=== PATIENT | female | born 1960 | race Native Hawaiian/Other Pacific Islander ===

== ENCOUNTER 2016-05-27 15:27 | Observation (INO) | payer BC ==
[~2016-05-27] VITALS: Ht 165.1 cm; Wt 110.9 kg
[~2016-05-27 15:27] MED LIST: ALPR0.5T24 PO; AMITRIPTYLIN50 MG PO; DULO60CA2 PO; LISI20TA11 PO; PROAIR HFA IN; TIZA4TAB5 PO
[2016-05-27 19:51] LABS: PLATELET COUNT 208 K/uL (152-353)
[2016-05-28 04:00] VITALS: BP 160/78; TEMP 97.9
[2016-05-28 04:54] VITALS: BP 157/88; TEMP 98; Ht 165.1 cm; Wt 110.9 kg
[2016-05-28 05:12] LABS: PLATELET COUNT 216 K/uL (152-353)
[2016-05-28 05:33] LABS: POTASSIUM 2.8 mmol/L (3.6-5.2); SODIUM 137 mmol/L (136-145)
[2016-05-28 08:00] VITALS: BP 168/78; TEMP 98.7
--- NOTE | 2016-05-28 08:41 | NUR ---
05/28/16 AT 0146PT HAS BEEN INFORMED MULTIPLE TIMES THAT STAFF CAN NOT TAKE HER OUT TO SMOKE AND SHE DOES NOT NEED TO BE UP WITHOUT ASSISTANCE AFTER PRN PAIN MEDICATION. NOTE PT WENT OUT TO SMOKE AGAINST ADVISE OF STAFF.
--- NOTE | 2016-05-28 08:42 | NUR ---
05/27/16 AT 2120SPOKE WITH ABOUT PT'S CRITICAL BLOOD SUGAR OF 466. NEW ORDERS AT 2129: NOVOLOG 20 UNITS SQ X 1 DOSE NOW, RECHECK FSBS IN [address] OF ABD/PELVIS WITH ORAL AND IV CONTRAST STAT. T. O. R&V DR. JORDAN/ANNABELLE RIZZO RN.
--- NOTE | 2016-05-28 08:44 | NUR ---
05/27/16 AT 1945PT INSTRUCTED ABOUT NPO STATUS AND EXPLAINED WHY SHE IS NPO, PT AND DAUGHTER ACKNOWLEDGE UNDERSTANDING.
[2016-05-28] MEDS ORDERED: JANUVIA100 MG PO (09:36)
[2016-05-28] MEDS ORDERED: LOSA50TA PO (09:36)
[2016-05-28] MEDS ORDERED: LIPITOR40 MG PO (09:37)
[2016-05-28] MEDS ORDERED: LEVO0.0723 PO (09:37)
--- NOTE | 2016-05-28 10:25 | NUR ---
NOTIFIED DR JORDAN OF LABS. NEW ORDES GIVEN AND OK TO GIVE PO MEDS WITH SIP OF WATER AT THIS TIME.
[2016-05-28 12:00] VITALS: BP 157/88; TEMP 98.5
--- NOTE | 2016-05-28 14:40 | NUR ---
1440 PT SIGNED AMA AT THIS TIME. DR JORDAN AWARE AND ROUNDED ON PT PRIOR TO PT SIGNING THE AMA. PT STATED HER CHILDREN'S GRANDDADDY AND SHE HAD TO LEAVE. PT LEFT AMBULATORY WITHOU ANY PROBLEMS NOTED
== END 2016-05-28 14:45 | disposition left against medical advice (07) ==
LOC: MED/SURG 15:27
PROVIDERS: Internal Medicine; ADMIT Student in an Organized Health Care Education/Training Program
DX: R10.11 Right upper quadrant pain (principal); R11.2 Nausea with vomiting, unspecified; M79.7 Fibromyalgia
CPT/HCPCS: 36415; 80053; 81000; 82150; 83690; 85027; 85651; 86140; 96360; 96366; 96367; 96374; 99220; G0378; G0379; J2175; J3480; J3490; Q9963

== ENCOUNTER 2016-06-03 07:53 | Outpatient (CLI) | payer BC ==
[~2016-06-03 07:53] MED LIST changes: +JANUVIA100 MG PO; +LEVO0.0723 PO; +LIPITOR40 MG PO; +LOSA50TA PO
== END 2016-06-03 19:02 | disposition home or self-care (01) ==
LOC: NM 07:53
DX: R10.11 Right upper quadrant pain (principal)
CPT/HCPCS: A9537

== ENCOUNTER 2016-07-05 08:54 | Day surgery (SDC) | payer BC ==
[2016-07-02 08:56] LABS: PLATELET COUNT 194 K/uL (152-353)
[2016-07-02 09:05] LABS: POTASSIUM 3.1 mmol/L (3.6-5.2); SODIUM 136 mmol/L (136-145)
[~2016-07-05] VITALS: Ht 30.5 cm; Wt 0.5 kg
== END 2016-07-05 13:50 | disposition home or self-care (01) ==
LOC: OR 08:54
PROVIDERS: Student in an Organized Health Care Education/Training Program
PROC: 0FT44ZZ Resection of Gallbladder, Percutaneous Endoscopic Approach (ICD-10-PCS; principal; 2016-07-05)
DX: K81.1 Chronic cholecystitis (principal)
CPT/HCPCS: 36415; 80053; 85027; 85610; 85730; J0330; J0360; J2001; J2250; J2704; J2710; J3010; J3490

== ENCOUNTER 2017-01-24 18:35 | Outpatient (CLI) | payer BC | END 2017-01-24 19:00 | disposition home or self-care (01) | LOC: LAB 18:35 | DX: K52.89 Other specified noninfective gastroenteritis and colitis (principal) | CPT/HCPCS: 87015; 87045; 87205; 87324; 87449; 87899 ==

== ENCOUNTER → 2018-02-11 13:20 | Outpatient (CLI) | payer BC ==
[~2018-02-11 13:20] MED LIST changes: +AMITRIPTYLINE H50 MG PO; +BUTALBITAL/ACET1 CAP PO; +COZAAR100 MG PO; +DIPHENATOL2.5 MG PO; +FLUOXETINE40 MG PO; +IBU800 MG PO; +NEURONTIN800 MG PO; +RANITIDINE HYD300 MG PO; +[UNRECOGNIZED DRUG - OTHER] TD
== END | disposition home or self-care (01) ==
LOC: AMB 13:20
DX: R41.82 Altered mental status, unspecified (principal)

== ENCOUNTER 2018-02-11 13:45 | Observation (INO) | payer BC ==
[~2018-02-11] VITALS: Ht 167.6 cm; Wt 94.1 kg
[2018-02-11 13:45] VITALS: BP 166/85; TEMP 98.1
[~2018-02-11 13:45] MED LIST changes: -AMITRIPTYLINE H50 MG PO; -BUTALBITAL/ACET1 CAP PO; -COZAAR100 MG PO; -DIPHENATOL2.5 MG PO; -FLUOXETINE40 MG PO; -IBU800 MG PO; -NEURONTIN800 MG PO; -RANITIDINE HYD300 MG PO; -[UNRECOGNIZED DRUG - OTHER] TD
[2018-02-11 14:31] LABS: PLATELET COUNT 254 K/uL (152-353)
[2018-02-11 14:44] LABS: POTASSIUM 2.9 mmol/L (3.6-5.2); SODIUM 139 mmol/L (136-145)
[2018-02-11 20:00] VITALS: BP 107/59; TEMP 98.8
[2018-02-12] VITALS: BP 168/84; TEMP 98.2
[2018-02-12] MEDS ORDERED: AMITRIPTYLINE H50 MG PO (00:18)
[2018-02-12] MEDS ORDERED: COZAAR100 MG PO (00:24)
[2018-02-12] MEDS ORDERED: FLUOXETINE40 MG PO (00:28)
[2018-02-12] MEDS ORDERED: BUTALBITAL/ACET1 CAP PO (00:30)
[2018-02-12] MEDS ORDERED: NEURONTIN800 MG PO (00:32)
[2018-02-12] MEDS ORDERED: RANITIDINE HYD300 MG PO (00:34)
[2018-02-12] MEDS ORDERED: DIPHENATOL2.5 MG PO (00:36)
[2018-02-12] MEDS ORDERED: [UNRECOGNIZED DRUG - OTHER] TD (00:40)
[2018-02-12] MEDS ORDERED: IBU800 MG PO (00:42)
[2018-02-12 03:54] VITALS: BP 172/82; TEMP 98.9
[2018-02-12 04:09] VITALS: BP 107/59; TEMP 98.8; Ht 167.6 cm; Wt 94.1 kg
[2018-02-12 06:17] LABS: POTASSIUM 3.2 mmol/L (3.6-5.2)
== END 2018-02-12 07:15 | disposition left against medical advice (07) ==
LOC: ED 13:45 → MED/SURG 17:33
PROVIDERS: ADMIT Internal Medicine
DX: R41.82 Altered mental status, unspecified (principal); E87.6 Hypokalemia; E11.9 Type 2 diabetes mellitus without complications; I10 Essential (primary) hypertension; K27.9 Peptic ulcer, site unspecified, unspecified as acute or chronic, without hemorrhage or perforation; D72.828 Other elevated white blood cell count; S09.8XXA Other specified injuries of head, initial encounter; W19.XXXA Unspecified fall, initial encounter; Y92.89 Other specified places as the place of occurrence of the external cause
CPT/HCPCS: 74022; 80053; 80307; 80320; 81000; 81002; 82550; 82553; 82948; 83735; 84443; 84484; 85027; 93005; 96365; 96366; 96367; 99220; 99284; G0378; J0360; J2310

== ENCOUNTER 2018-02-17 10:17 | Outpatient (CLI) | payer BC ==
[~2018-02-17 10:17] MED LIST changes: +AMITRIPTYLINE H50 MG PO; +BUTALBITAL/ACET1 CAP PO; +COZAAR100 MG PO; +DIPHENATOL2.5 MG PO; +FLUOXETINE40 MG PO; +IBU800 MG PO; +NEURONTIN800 MG PO; +RANITIDINE HYD300 MG PO; +[UNRECOGNIZED DRUG - OTHER] TD
[2018-02-17 10:42] LABS: POTASSIUM 3.2 mmol/L (3.6-5.2)
== END 2018-02-17 22:15 | disposition home or self-care (01) ==
LOC: LABW 10:17
PROVIDERS: Nurse Practitioner
DX: E87.6 Hypokalemia (principal)
CPT/HCPCS: 36415; 80048

== ENCOUNTER 2018-07-03 10:00 | Outpatient (CLI) | payer OTHER | END 2018-07-03 20:22 | disposition home or self-care (01) | LOC: RAD 10:00 | DX: M54.2 Cervicalgia (principal) ==

== ENCOUNTER 2018-11-25 23:03 | Outpatient (CLI) | payer OTHER ==
[2018-11-26] MEDS ORDERED: HYDR5TAB9 PO (04:10)
[2018-11-26] MEDS ORDERED: TEMA15CA19 PO (04:10)
[2018-11-26] MEDS ORDERED: PHENTERMINE37.5 MG PO (04:11)
[2018-11-26] MEDS ORDERED: PROMETHAZINE HY25 MG PO (04:12)
[2018-11-26] MEDS ORDERED: TRAZODONE HYDR150 MG PO (04:12)
== END 2018-11-25 23:07 | disposition short-term general hospital (02) ==
LOC: AMB 23:03
DX: R41.82 Altered mental status, unspecified (principal); E11.65 Type 2 diabetes mellitus with hyperglycemia; R06.09 Other forms of dyspnea; I95.89 Other hypotension
CPT/HCPCS: A0425; A0427

== ENCOUNTER 2018-11-25 23:11 | Emergency (ER) | payer OTHER ==
[~2018-11-25] VITALS: Ht 167.6 cm; Wt 93.9 kg
[2018-11-25 23:41] LABS: POTASSIUM 5.5 mmol/L (3.6-5.2)
[2018-11-25 23:50] LABS: PLATELET COUNT 256 K/uL (152-353)
[2018-11-25 23:54] LABS: PARTIAL THROMBOPLASTIN TIME 24.5 SECONDS (24.5-33.6)
[2018-11-26] MEDS ORDERED: HYDR5TAB9 PO (04:10)
[2018-11-26] MEDS ORDERED: TEMA15CA19 PO (04:10)
[2018-11-26] MEDS ORDERED: PHENTERMINE37.5 MG PO (04:11)
[2018-11-26] MEDS ORDERED: TRAZODONE HYDR150 MG PO (04:12)
[2018-11-26] MEDS ORDERED: PROMETHAZINE HY25 MG PO (04:12)
== END 2018-11-26 00:08 | disposition short-term general hospital (02) ==
LOC: ED 23:11
PROVIDERS: Student in an Organized Health Care Education/Training Program
PROC: 0BH17EZ Insertion of Endotracheal Airway into Trachea, Via Natural or Artificial Opening (ICD-10-PCS; principal; 2018-11-25)
PROC: 06HM33Z Insertion of Infusion Device into Right Femoral Vein, Percutaneous Approach (ICD-10-PCS; 2018-11-25)
PROC: 0T9B70Z Drainage of Bladder with Drainage Device, Via Natural or Artificial Opening (ICD-10-PCS; 2018-11-25)
PROC: 5A12012 Performance of Cardiac Output, Single, Manual (ICD-10-PCS; 2018-11-25)
DX: I21.19 ST elevation (STEMI) myocardial infarction involving other coronary artery of inferior wall (principal); J96.90 Respiratory failure, unspecified, unspecified whether with hypoxia or hypercapnia; F17.210 Nicotine dependence, cigarettes, uncomplicated
CPT/HCPCS: 36558; 51702; 80053; 80307; 81000; 82550; 82553; 84484; 85027; 85610; 85730; 96365; 96367; 96368; 96374; 96375; 96376; 99285; 99291; C1768; J0171; J0330; J0461; J1265; J1644; J2250; J2310; J3490

== ENCOUNTER 2019-01-03 22:31 | Outpatient (CLI) | payer OTHER ==
[~2019-01-03 22:31] MED LIST changes: +HYDR5TAB9 PO; +PHENTERMINE37.5 MG PO; +PROMETHAZINE HY25 MG PO; +TEMA15CA19 PO; +TRAZODONE HYDR150 MG PO
[2019-01-04] MEDS ORDERED: NEURONTIN800 MG PO (16:34)
[2019-01-04] MEDS ORDERED: TRULICITY1.5 MG/0.5 SC (16:37)
[2019-01-04] MEDS ORDERED: CARDIZEM60 MG PO (16:39)
[2019-01-04] MEDS ORDERED: RANITIDINE HYD300 MG PO (16:50)
[2019-01-04] MEDS ORDERED: INSU300I SC (17:25)
[2019-01-04] MEDS ORDERED: INSU100P SC (17:28)
[2019-01-04] MEDS ORDERED: PROM25TA52 PO (17:34)
[2019-01-04] MEDS ORDERED: COZAAR25 MG PO (17:35)
[2019-01-04] MEDS ORDERED: CLOP75TA2 PO (17:36)
[2019-01-04] MEDS ORDERED: LIPITOR40 MG PO (17:59)
[2019-01-04] MEDS ORDERED: METO-837 PO (18:01)
[2019-01-04] MEDS ORDERED: PRED5TAB3 PO (18:03)
[2019-01-04] MEDS ORDERED: TRAMADOL HCL200 MG PO (18:05)
[2019-01-04] MEDS ORDERED: DICL1GEL2 TOP (18:07)
[2019-01-04] MEDS ORDERED: ALBU90AE13 INH (18:34)
== END 2019-01-03 22:35 | disposition short-term general hospital (02) ==
LOC: AMB 22:31
DX: R41.82 Altered mental status, unspecified (principal)
CPT/HCPCS: A0425; A0427

== ENCOUNTER 2019-01-03 22:35 | Inpatient (IN) | payer OTHER ==
[2019-01-03] VITALS (8 sets, daily range): BP systolic 62–142; BP diastolic 36–97; TEMP 97
[~2019-01-03] VITALS: Ht 165.1 cm; Wt 89.8 kg
[2019-01-04] VITALS (17 sets, daily range): BP systolic 90–179; BP diastolic 42–89; TEMP 97.8–99.2; Ht 165.1 cm; Wt 89.8 kg
[2019-01-04 00:09] LABS: PLATELET COUNT 265 K/uL (152-353)
[2019-01-04 00:11] LABS: POTASSIUM 3.3 mmol/L (3.6-5.2); SODIUM 136 mmol/L (136-145)
[2019-01-04 09:25] LABS: PLATELET COUNT 207 K/uL (152-353)
[2019-01-04 09:44] LABS: POTASSIUM 3.4 mmol/L (3.6-5.2)
[2019-01-04] MEDS ORDERED: NEURONTIN800 MG PO (16:34)
[2019-01-04] MEDS ORDERED: TRULICITY1.5 MG/0.5 SC (16:37)
[2019-01-04] MEDS ORDERED: CARDIZEM60 MG PO (16:39)
[2019-01-04] MEDS ORDERED: RANITIDINE HYD300 MG PO (16:50)
[2019-01-04] MEDS ORDERED: INSU300I SC (17:25)
[2019-01-04] MEDS ORDERED: INSU100P SC (17:28)
[2019-01-04] MEDS ORDERED: PROM25TA52 PO (17:34)
[2019-01-04] MEDS ORDERED: COZAAR25 MG PO (17:35)
[2019-01-04] MEDS ORDERED: CLOP75TA2 PO (17:36)
[2019-01-04] MEDS ORDERED: LIPITOR40 MG PO (17:59)
[2019-01-04] MEDS ORDERED: METO-837 PO (18:01)
[2019-01-04] MEDS ORDERED: PRED5TAB3 PO (18:03)
[2019-01-04] MEDS ORDERED: TRAMADOL HCL200 MG PO (18:05)
[2019-01-04] MEDS ORDERED: DICL1GEL2 TOP (18:07)
[2019-01-04] MEDS ORDERED: ALBU90AE13 INH (18:34)
[2019-01-05] VITALS: BP 138/76; TEMP 97.9
[2019-01-05 04:11] VITALS: BP 175/54; TEMP 98.5
== END 2019-01-05 12:04 | disposition home or self-care (01) | DRG 918 ==
LOC: ED 22:35 → MED/SURG 01-04 02:10 → ICU 01-04 11:45
PROVIDERS: Emergency Medicine; ADMIT Family Medicine
DX: T42.4X1A Poisoning by benzodiazepines, accidental (unintentional), initial encounter (principal); N39.0 Urinary tract infection, site not specified; R41.82 Altered mental status, unspecified; F19.10 Other psychoactive substance abuse, uncomplicated; E86.0 Dehydration; E11.65 Type 2 diabetes mellitus with hyperglycemia; E87.6 Hypokalemia; I51.7 Cardiomegaly; I25.10 Atherosclerotic heart disease of native coronary artery without angina pectoris; I10 Essential (primary) hypertension; E66.8 Other obesity; M79.7 Fibromyalgia; Y92.89 Other specified places as the place of occurrence of the external cause
CPT/HCPCS: 36600; 51702; 80053; 80307; 81000; 81002; 82550; 82553; 82805; 83735; 84443; 84484; 85027; 85379; 87088; 93005; 93306; 94760; 96360; 96375; 96376; 99284; A9576; J0696; J2310; J3490; Q9963

== ENCOUNTER 2019-01-20 21:39 | Outpatient (CLI) | payer OTHER ==
[~2019-01-20 21:39] MED LIST changes: +ALBU90AE13 INH; +CARDIZEM60 MG PO; +CLOP75TA2 PO; +COZAAR25 MG PO; +DICL1GEL2 TOP; +INSU100P SC; +INSU300I SC; +METO-837 PO; +PRED5TAB3 PO; +PROM25TA52 PO; +TRAMADOL HCL200 MG PO; +TRULICITY1.5 MG/0.5 SC
== END 2019-01-20 21:43 | disposition short-term general hospital (02) ==
LOC: AMB 21:39
DX: R41.82 Altered mental status, unspecified (principal); R73.9 Hyperglycemia, unspecified; I95.9 Hypotension, unspecified
CPT/HCPCS: A0425; A0427

== ENCOUNTER 2019-01-20 21:50 | Emergency (ER) | payer OTHER ==
[~2019-01-20] VITALS: Ht 165.1 cm; Wt 89.8 kg
[2019-01-20 21:50] VITALS: BP 75/43; TEMP 97.7
[2019-01-20 22:21] VITALS: BP 75/46
[2019-01-20 22:50] LABS: PLATELET COUNT 351 K/uL (152-353)
[2019-01-20 22:59] LABS: POTASSIUM 5.4 mmol/L (3.6-5.2); SODIUM 133 mmol/L (136-145)
[2019-01-20 23:00] VITALS: BP 88/58
[2019-01-20 23:40] VITALS: BP 80/52
[2019-01-21] VITALS (7 sets, daily range): BP systolic 79–109; BP diastolic 48–67; TEMP 97.7
== END 2019-01-21 02:31 | disposition still patient (30) ==
LOC: ED 21:50 → MED/SURG 23:35 → ED 01-21 02:31
PROVIDERS: Emergency Medicine
PROC: 0T9B70Z Drainage of Bladder with Drainage Device, Via Natural or Artificial Opening (ICD-10-PCS; principal; 2019-01-20)
DX: T42.4X1A Poisoning by benzodiazepines, accidental (unintentional), initial encounter (principal); R40.4 Transient alteration of awareness; Y92.89 Other specified places as the place of occurrence of the external cause
CPT/HCPCS: 51702; 80053; 80307; 80320; 80329; 82962; 83735; 84484; 85027; 93005; 96360; 96375; 99285; J3490

== ENCOUNTER 2019-02-09 12:22 | Inpatient (IN) | payer OTHER ==
[~2019-02-09] VITALS: Ht 165.1 cm; Wt 85.4 kg
[2019-02-09 13:39] LABS: PLATELET COUNT 304 K/uL (152-353)
[2019-02-09 13:58] LABS: POTASSIUM 3.1 mmol/L (3.6-5.2); SODIUM 140 mmol/L (136-145)
[2019-02-09 15:24] VITALS: BP 150/100; TEMP 97.7; Ht 165.1 cm; Wt 85.4 kg
[2019-02-09] MEDS ORDERED: BAYER ASPIRIN E81 MG PO (15:43)
[2019-02-09] MEDS ORDERED: NUCYNTA50 MG PO (15:44)
[2019-02-09] MEDS ORDERED: PROM25TA52 PO (15:45)
[2019-02-09] MEDS ORDERED: HYDR10TA47 PO (15:45)
[2019-02-09] MEDS ORDERED: TIZA4TAB5 PO (15:47)
[2019-02-09] MEDS ORDERED: XANAX XR1 MG PO (15:48)
[2019-02-09 16:00] VITALS: BP 94/71; TEMP 101.1
[2019-02-09 20:00] VITALS: BP 169/58; TEMP 97.9
[2019-02-10] VITALS: BP 120/62; TEMP 98.1
[2019-02-10 04:00] VITALS: BP 147/73; TEMP 98.5
[2019-02-10 06:00] LABS: PLATELET COUNT 247 K/uL (152-353)
[2019-02-10 06:11] LABS: POTASSIUM 2.9 mmol/L (3.6-5.2)
[2019-02-10 08:00] VITALS: BP 153/91; TEMP 98.2
[2019-02-10 12:00] VITALS: BP 136/77; TEMP 98
[2019-02-10 16:00] VITALS: BP 163/88; TEMP 97.9
[2019-02-10 20:00] VITALS: BP 156/98; TEMP 97.4
[2019-02-11] VITALS: BP 106/76; TEMP 97.7
[2019-02-11 04:00] VITALS: BP 132/64; TEMP 98.1
[2019-02-11 05:54] LABS: PLATELET COUNT 220 K/uL (152-353)
[2019-02-11 06:09] LABS: POTASSIUM 3.7 mmol/L (3.6-5.2)
[2019-02-11 08:00] VITALS: BP 155/77; TEMP 98.1
== END 2019-02-11 09:20 | disposition home or self-care (01) | DRG 74 ==
LOC: MED/SURG 12:22
PROVIDERS: ADMIT Family Medicine
DX: E11.43 Type 2 diabetes mellitus with diabetic autonomic (poly)neuropathy (principal); N39.0 Urinary tract infection, site not specified; E11.65 Type 2 diabetes mellitus with hyperglycemia; K31.84 Gastroparesis; E86.0 Dehydration; D64.89 Other specified anemias; E03.8 Other specified hypothyroidism; I10 Essential (primary) hypertension; K21.9 Gastro-esophageal reflux disease without esophagitis; I25.10 Atherosclerotic heart disease of native coronary artery without angina pectoris; I25.2 Old myocardial infarction; I51.7 Cardiomegaly; E87.6 Hypokalemia; M79.7 Fibromyalgia
CPT/HCPCS: 36415; 80053; 80307; 81000; 82150; 82272; 82550; 83605; 83690; 83880; 84132; 84443; 84484; 85027; 87040; 87502; 93005; J0696; J1815; J2550; Q9963

== ENCOUNTER 2019-06-07 10:59 | Inpatient (IN) | payer OTHER ==
[~2019-06-07] VITALS: Ht 165.1 cm; Wt 90.0 kg
[2019-06-07 10:59] VITALS: BP 139/71; TEMP 97.3
[~2019-06-07 10:59] MED LIST changes: +BAYER ASPIRIN E81 MG PO; +HYDR10TA47 PO; +NUCYNTA50 MG PO; +XANAX XR1 MG PO
[2019-06-07 11:47] LABS: PLATELET COUNT 190 K/uL (152-353)
[2019-06-07 12:01] LABS: POTASSIUM 3.9 mmol/L (3.6-5.2)
--- NOTE | 2019-06-07 14:50 | NUR ---
ADMIT 58 YEAR OLD FEMALE TO ROOM 1109, SERVICES DR BLAIR DX. ACUTE RENAL FAILURE, ELEVATED CREATINE, DEHYDRATION, ALTERED MENTAL STATUS. PATIENT MOVED TO BED HOB UP VITALS SIGNS 97.8 AX, 66 HR, 17 RESP, 119/64, SAT 93% PT WEARING O2 AT 3 L.
[2019-06-07 16:18] VITALS: BP 119/64; TEMP 97.8
--- NOTE | 2019-06-07 16:48 | NUR ---
BEGAN ADMISSION ASSESSEMENT PATIENT RESTING IN BED EYES CLOSED. IV FLUIDS AT 125. O2 VIA NC 2L. VOIDING WELL LUU HAS GOOD OUTPUT. EMPTIED 900 ML KYLE CLEAR URINE.
[2019-06-07 16:54] VITALS: BP 119/64; TEMP 97.8; Ht 165.1 cm; Wt 90.0 kg
--- NOTE | 2019-06-07 18:00 | NUR ---
PATIENT CONTINUES RESTING WITH EYES CLOSED RESP EVEN, RECIEVED HEPARIN SQ ABD. NO RESPONSE TO NEEDLE STICK. IV FLUIDS CONTINUE WITHOUT DIFFICULTY.
[2019-06-07] MEDS ORDERED: ROBAXIN-750750 MG PO (19:38)
[2019-06-07] MEDS ORDERED: NORCO 10/325***1 TAB PO (19:41)
[2019-06-07] MEDS ORDERED: KETOROLAC10 MG PO (19:44)
[2019-06-07] MEDS ORDERED: CLON0.3T7 PO (19:48)
[2019-06-07] MEDS ORDERED: CARDIZEM60 MG PO (19:49)
[2019-06-07] MEDS ORDERED: BACLOFEN10 MG PO (19:51)
[2019-06-07] MEDS ORDERED: NUCYNTA100 MG PO (19:54)
[2019-06-07] MEDS ORDERED: VALACYCLOVIR HYD1 GM PO (19:56)
[2019-06-07] MEDS ORDERED: JANUVIA100 MG PO (19:59)
[2019-06-07 20:00] VITALS: BP 124/58; TEMP 98.3
[2019-06-07] MEDS ORDERED: COZAAR25 MG PO (20:00)
[2019-06-07] MEDS ORDERED: LIPITOR40 MG PO (20:04)
--- NOTE | 2019-06-07 20:35 | NUR ---
DR. OCHOA NOTIFIED OF PT'S ALTERED MENTAL STATUS, PT YELLING, SCREAMING CURSING AT STAFF. PT ALSO NOTED YELLING AND CALLING OUT FOR NATACHA, I WANT NATACHA, I DON'T WANT THIS VIRUS I CAN'T , I HAVE TO LIVE. RECEIVED ORDER FROM DR OCHOA FOR ATIVAN 1MG. IVP AT THIS TIME.
[2019-06-08 04:00] VITALS: BP 124/58; TEMP 98.3
[2019-06-08 05:31] LABS: PLATELET COUNT 186 K/uL (152-353)
[2019-06-08 05:32] LABS: POTASSIUM 4.6 mmol/L (3.6-5.2)
--- NOTE | 2019-06-08 08:00 | NUR ---
PATIENT IN BED AWAKE CONFUSED TALKING OUT LOUD. UNABLE TO CARRY CONVERSATION REPEATS HERSELF OVER AND OVER. RESTART IV 22 GA LEFT WRIST. RESUME IV FLUIDS DR BLAIR VISITED.
[2019-06-08 08:01] VITALS: BP 187/91; TEMP 98.9
--- NOTE | 2019-06-08 09:47 | NUR ---
PATIENT RESTLESS AT TIMES CALLING OUT, PULLING AT IV LINES IV PROTECTED. CONFUSED ATTEMPT TO REORIENT TO HOSPITAL. BED DOWN RAILS UP BED ALARM ON.
--- NOTE | 2019-06-08 10:24 | NUR ---
PATIENT MOVED UP IN BED HOB UP. TALKING OUT CONFUSED, WASHED FACE AM CARE TOOK FEW SIPS OF WATER TAKING FEW BITES OF PUDDING. FRANCISCA OK NO COUGHING. REORIENT TO HOSPITAL. RECIEVED 0.5 ALPRAZOLAM PO TOOK WITH PUDDING.
--- NOTE | 2019-06-08 11:35 | NUR ---
PATIENT HAS BEEN PULLING AT [facility] CATH. TOLD PT NOT TO PULL ON CATH ATTEMPT TO HIDE FROM PATIENT. CONTINUES TO FIND CATH PULLED CATH OUT BALLON INTACT. NO BLEEDING NOTED APPLIED ADULT DIAPER. WILL CONTINUE TO MONITOR AND REPORT TO .
[2019-06-08 12:00] VITALS: BP 191/84; TEMP 98.2
--- NOTE | 2019-06-08 12:30 | NUR ---
PATIENT AT ABOUT 1/2 LUNCH TRAY ASSISTED UP IN BED PATIENT CONTINUES CONFUSED CALLING OUT. BED DOWN RAILS UP WITH BED ALARM ON.
--- NOTE | 2019-06-08 14:34 | NUR ---
WILFRIDO SITTING TO PATIENT FOR NOW. PATIENT RESTING IN BED. CONFUSED FREQUENT ORIENTATION.
[2019-06-08 16:00] VITALS: BP 112/79; TEMP 98.2
--- NOTE | 2019-06-08 17:56 | NUR ---
WILFRIDO POSADA HAS BEEN SITTING WITH PATIENT THIS AFTERNOON, ASSISTED PATIENT UP TO BATHROOM TWICE THIS AFTERNOON TO VOID. PATIENT TALKING ALOT CONFUSED, ATTEMPT TO REORIENT. FAMILY MEMBERS ON PHONE DAUGHTER ENEDINA AFTER TALKING WITH HER MOM STATED " SOMETHING IS WRON WITH HER" ASKED ABOUT TEST LABS. STATED THAT THEY HAD SPOKE WITH DR RUBY AND THAT HE WAS HER DOCTOR. ALSO STATED THAT SHE HAD BEEN TAKING HER MEDS PRESCRIBED. REPORT TO DR BLAIR. LEFT DAUGHTER'S PHONE NUMBER WITH HIM STATED THAT HE WOULD CALL HER. IV FLUIDS CONTINUE TO INFUSE AT 125 HR. VOIDED WELL TODAY.
--- NOTE | 2019-06-08 18:57 | NUR ---
PATIENT GETTING LOUDER ATTEMPT TO REORIENT TO HOSPITAL. BECOMING AGITATED XANAX 0.5 MG PO X 1 DOSE GIVEN
[2019-06-08 19:59] VITALS: BP 181/93; TEMP 99.4
[2019-06-09] VITALS: BP 189/89; TEMP 100.3
[2019-06-09 04:00] VITALS: BP 169/88; TEMP 99.6
[2019-06-09 05:34] LABS: PLATELET COUNT 190 K/uL (152-353)
[2019-06-09 05:47] LABS: POTASSIUM 3.7 mmol/L (3.6-5.2)
--- NOTE | 2019-06-09 10:05 | NUR ---
1000 ALL HOME MEDS RETURNED TO PT. ALSO EXPLAINED TO PT THAT DR BLAIR STOPPED THE FOLLOWING MEDS: TORADOL, NUCYNTA, BACOFLEN. PT VOICED UNDERSTANDING. PT LEFT VIA WC DAUGHTER CAME TO PICK PT UP
== END 2019-06-09 10:16 | disposition home or self-care (01) | DRG 682 ==
LOC: ED 10:59 → MED/SURG 13:40
PROVIDERS: Internal Medicine Endocrinology, Diabetes & Metabolism; ADMIT Family Medicine
DX: N17.9 Acute kidney failure, unspecified (principal); G92 Toxic encephalopathy; E11.9 Type 2 diabetes mellitus without complications; I10 Essential (primary) hypertension; G89.4 Chronic pain syndrome; E78.49 Other hyperlipidemia; I25.10 Atherosclerotic heart disease of native coronary artery without angina pectoris; E03.8 Other specified hypothyroidism; M79.7 Fibromyalgia; T42.4X1A Poisoning by benzodiazepines, accidental (unintentional), initial encounter; Y92.89 Other specified places as the place of occurrence of the external cause
CPT/HCPCS: 51702; 80048; 80053; 80307; 81000; 85027; 93005; 96360; 96365; 99284; J1644; J1815; J2060

== ENCOUNTER 2022-11-12 13:33 | Outpatient (CLI) | payer OTHER ==
[~2022-11-12 13:33] MED LIST changes: +AIMOVIG70 MG/ML SC; +AMITRIPTYLIN75 MG PO; +ATORVASTATIN; +BACLOFEN10 MG PO; +CLARITIN10 M1 PO; +CLON0.3T7 PO; +DEXL60CA4 PO; +FARXIGA10 MG PO; +KETOROLAC10 MG PO; +KETOROLAC30 MG/ML IM; +LANTUS100 UNIT/M SC; +LEVOFLOXACIN750 MG PO; +MYRBETRIQ25 MG PO; +NORCO 10/325***1 TAB PO; +NOVOLOG100 UNIT/M SC; +NUCYNTA ER50 MG PO; +NUCYNTA100 MG PO; +PANTOPRAZOLE 40MG TA PO; +PREG75CA PO; +ROBAXIN-750750 MG PO; +SERT50TA PO; +VALACYCLOVIR HYD1 GM PO; +XANAX2 MG PO; +[UNRECOGNIZED DRUG - OTHER] SC
[2022-11-12 14:09] LABS: PLATELET COUNT 182 K/uL (152-353)
[2022-11-12 14:24] LABS: POTASSIUM 3.6 mmol/L (3.6-5.2)
== END 2022-11-12 19:20 | disposition home or self-care (01) ==
LOC: MAMMO 13:33
PROVIDERS: ATTEND Student in an Organized Health Care Education/Training Program
DX: Z12.31 Encounter for screening mammogram for malignant neoplasm of breast (principal); L89.150 Pressure ulcer of sacral region, unstageable; R55 Syncope and collapse; Z79.899 Other long term (current) drug therapy
CPT/HCPCS: 36415; 80053; 83036; 85027; 85652; 86140; G0279